=== PATIENT | female | born 1995 | race Caucasian/White ===

== ENCOUNTER → 2018-03-21 09:26 | Outpatient (CLI) | payer OTHER, SELFPAY ==
[2018-03-21 10:31] LABS: Free T4, Direct Thyroxine 0.94 ng/dL (0.78-2.19)
[2018-03-21 10:45] LABS: Thyroid Stimulating Hormone 2.69 uIU/mL (0.47-4.68)
== END ==
PROVIDERS: Visit Provider Obstetrics & Gynecology
DX: R63.4 Abnormal weight loss (principal)
CPT/HCPCS: 36415; 84439; 84443